=== PATIENT | female | born 1975 | race Caucasian/White ===

== ENCOUNTER 2017-07-19 21:16 | Emergency (ER) | payer BC ==
[~2017-07-19] VITALS: Ht 170.2 cm; Wt 68.0 kg
[2017-07-19] MEDS ORDERED: CYCLOBENZAPRINE HCL 10 MG TAB PO ONE (22:30)
[2017-07-19] MEDS ORDERED: KETOROLAC TROMETHAMINE 60 MG/2 ML VIAL IM ONE (22:30)
[2017-07-19] MEDS ORDERED: TRIMETHOPRIM/SULFAMETHOXAZOLE 160-800 MG TAB PO ONE (22:30)
[2017-07-19 23:30] VITALS: BP 119/69
== END 2017-07-19 23:30 | disposition home or self-care (01) ==
LOC: FSED 21:16
DX: M54.5 Low back pain (principal); N30.90 Cystitis, unspecified without hematuria; M62.830 Muscle spasm of back; E05.90 Thyrotoxicosis, unspecified without thyrotoxic crisis or storm
CPT/HCPCS: 81003; 81025; 87086; 99283; J1885

== ENCOUNTER → 2024-11-19 | Day surgery (SDC) | payer OTHER ==
[~2024-11-19] MED LIST: ACETAMINOPHEN 1000 MG/100 ML 100 ML IV ONE; B COMPLEX1 EACH PO; CAL/MG/ZINC PO; DEXAMETHASONE SOD PHOS INJ 4 MG/ML SDV ONE; FAMOTIDINE 20 MG/2 ML VIAL IV ONE; FENTANYL CITRATE/PF 100MCG/2 ML INJ ONE; K2 PLUS D3 TAB1 EACH PO; LIDOCAINE HCL 2% LOCAL INJ 5 ML SDV VIAL INJ ONE; METOCLOPRAMIDE HCL 10 MG/2ML VIAL ONE; MIDAZOLAM HCL 2 MG/2 ML VIAL ONE; MULTI-VITAMIN1 EACH PO; ONDANSETRON HCL INJ 2MG/ML 2ML 2 MG/ML VIAL ONE; PROPOFOL IV EMULSION 10 MG/ML 20 ML VIAL ONE; SEVOFLURANE INHAL SOLN 250 ML PEN BTL ONE; VITAMIN B121000 MCG PO; VITAMIN D310 MCG PEG; XYZAL5 MG PO; ZINC PO
[2024-11-19] MEDS: CLINDAMYCIN PHOS 900MG/ 50ML 50 ML IV ONE (06:04)
[2024-11-19] MEDS: LACTATED RINGER'S 1,000 ML ONE (06:05)
[2024-11-19 08:46] VITALS: BP 106/74; PULSE 59; RESP 17; O2SAT 98
== END | disposition home or self-care (01) ==
LOC: OR 05:17
PROVIDERS: ATTEND Podiatrist Foot & Ankle Surgery
DX: G57.52 Tarsal tunnel syndrome, left lower limb (principal); Z88.0 Allergy status to penicillin; Z91.040 Latex allergy status
CPT/HCPCS: 28035; 81025; J0131; J1100; J1308; J2003; J2250; J2405; J2704; J2765; J3010; J7121